=== PATIENT | male | born 1985 | race Hispanic/Latino ===

== ENCOUNTER 2018-03-29 10:53 | Emergency (ER) | payer OTHER ==
[2018-03-29] MEDS ORDERED: ONDANSETRON 4 MG/2 ML VIAL ONE (11:18)
[2018-03-29 11:21] LABS: Absolute Lymphocytes (CBC) 1.3 K/uL (0.7-4.9); Absolute Monocytes 0.4 K/uL (0.1-1.3); Absolute Neutrophil 4.9 K/uL (1.8-8.0); Basophils % 0.6 % (0-1.3); Eosinophils % 1.7 % (0-4.4); Hematocrit 39.6 % (39.6-49.0); Lymphocytes % 19.7 % (15.3-44.8); MCV 90.7 fL (80-100); MPV 8.2 fL (7.6-11.3); Monocytes % 6.5 % (3.3-12.3); RBC Red Blood Cell Count 4.37 M/uL (4.33-5.43)
[2018-03-29 11:29] LABS: Potassium 3.9 mmol/L (3.5-5.1)
--- NOTE | 2018-03-29 12:36 | EDPHYS ---
Physician Documentation [facility] Name: Isak Doyle Age: 33 yrs Sex: Male : 1985 Arrival Date: 03/29/2018 Time: 10:54 Bed 5 Private MD: Unknown, Unknown ED Physician Macho Blevins HPI: 03/29 12:00 This 33 yrs old Male presents to ER via EMS with complaints of Heat Exposure. pm1 12:00 The patient presents to the emergency department with nausea, vomiting. Onset: The pm1 symptoms/episode began/occurred just prior to arrival. Possible causes: Heat exposure. The symptoms are aggravated by nothing. The symptoms are alleviated by zofran by EMS in route. Associated signs and symptoms: Pertinent positives: Headache, Pertinent negatives: abdominal pain, dysuria, fever. Severity of symptoms: in the emergency department the symptoms have improved. The patient has not experienced similar symptoms in the past. The patient has not recently seen a physician. Patient was working outside in the heat since 0800 this AM. Patient was trying to keep up with drinking fluids but got to a point where he was nauseated and was unable to drink water. Has a headache that was addressed by EMS with Tylenol. No chest pain, dizziness or shortness of breath. Historical: - Allergies: 11:03 Sulfa (Sulfonamide Antibiotics); sv - Home Meds: 11:03 None [Active]; sv - PMHx: 11:03 None; sv - PSHx: 11:03 None; sv - Immunization history:: Adult Immunizations up to date. - Social history:: Smoking status: Patient/guardian denies using tobacco. - Ebola Screening: : No symptoms or risks identified at this time. ROS: 12:00 Constitutional: Negative for fever, chills, and weight loss, Eyes: Negative for injury, pm1 pain, redness, and discharge, ENT: Negative for injury, pain, and discharge, Neck: Negative for injury, pain, and swelling, Cardiovascular: Negative for chest pain, palpitations, and edema, Respiratory: Negative for shortness of breath, cough, wheezing, and pleuritic chest pain, Abdomen/GI: Negative for abdominal pain, nausea, vomiting, diarrhea, and constipation, Back: Negative for injury and pain, MS/Extremity: Negative for injury and deformity, Skin: Negative for injury, rash, and discoloration. 12:00 Neuro: Positive for headache, Negative for dizziness, seizure activity, syncope, tingling, visual changes, weakness. Exam: 12:00 Constitutional: This is a well developed, well nourished patient who is awake, alert, pm1 and in no acute distress. Head/Face: Normocephalic, atraumatic. Eyes: Pupils equal round and reactive to light, extra-ocular motions intact. Lids and lashes normal. Conjunctiva and sclera are non-icteric and not injected. Cornea within normal limits. Periorbital areas with no swelling, redness, or edema. ENT: Nares patent. No nasal discharge, no septal abnormalities noted. Tympanic membranes are normal and external auditory canals are clear. Oropharynx with no redness, swelling, or masses, exudates, or evidence of obstruction, uvula midline. Mucous membranes moist. Neck: Trachea midline, no thyromegaly or masses palpated, and no cervical lymphadenopathy. Supple, full range of motion without nuchal rigidity, or vertebral point tenderness. No Meningismus. Chest/axilla: Normal chest wall appearance and motion. Nontender with no deformity. No lesions are appreciated. Cardiovascular: Regular rate and rhythm with a normal S1 and S2. No gallops, murmurs, or rubs. Normal PMI, no JVD. No pulse deficits. Respiratory: Lungs have equal breath sounds bilaterally, clear to auscultation and percussion. No rales, rhonchi or wheezes noted. No increased work of breathing, no retractions or nasal flaring. Abdomen/GI: Soft, non-tender, with normal bowel sounds. No distension or tympany. No guarding or rebound. No evidence of tenderness throughout. Back: No spinal tenderness. No costovertebral tenderness. Full range of motion. Skin: Warm, dry with normal turgor. Normal color with no rashes, no lesions, and no evidence of cellulitis. MS/ Extremity: Pulses equal, no cyanosis. Neurovascular intact. Full, normal range of motion. 12:00 Neuro: Orientation: is normal, Mentation: is normal, Cranial nerves: CN II- XII are normal as tested, Cerebellar function: normal finger to nose testing, Motor: is normal, moves all fours, Sensation: is normal, no obvious gross deficits. Vital Signs: 11:03 BP 128 / 76 RA Supine (auto/lg); Pulse 78; Resp 18; Temp 98.5; Pulse Ox 97% ; Weight sv 99.79 kg; Height 5 ft. 9 in. (175.26 cm); Pain 7/10; 11:04 BP 130 / 83 RA Sitting (auto/lg); Pulse 75; sv 11:06 BP 137 / 80 RA Standing (auto/lg); Pulse 80; sv 13:07 BP 118 / 64; Pulse 84; Resp 16 S; Pulse Ox 98% on R/A; Pain 0/10; iw 11:03 Body Mass Index 32.49 (99.79 kg, 175.26 cm) sv MDM: 10:55 Patient medically screened. [facility] 12:06 Data reviewed: vital signs. Data interpreted: Pulse oximetry: on room air is 97 %. pm1 Interpretation: normal. Counseling: I had a detailed discussion with the patient and/or guardian regarding: the historical points, exam findings, and any diagnostic results supporting the discharge/admit diagnosis, lab results, the need for outpatient follow up, to return to the emergency department if symptoms worsen or persist or if there are any questions or concerns that arise at home. 12:35 ED course: Patient offered additional IV fluids. Patient refused because he feels pm1 better now and wants to go home and eat. 03/29 10:55 Order name: CBC with Diff; Complete Time: 11:35 03/29 10:55 Order name: Basic Metabolic Panel; Complete Time: 11:35 [facility] 03/29 10:55 Order name: CPK; Complete Time: 11:35 [facility] 03/29 10:55 Order name: Urine Dipstick-Ancillary (obtain specimen); Complete Time: 13:08 03/29 10:56 Order name: IV; Complete Time: 10:59 03/29 10:58 Order name: Orthostatic Blood Pressure; Complete Time: 11:15 pm1 Administered Medications: 10:59 Drug: NS 0.9% 1000 ml Route: IV; Rate: 1000 ml; Site: left antecubital; sv 12:00 Follow up: IV Status: Completed infusion iw 11:15 Drug: Zofran 4 mg Route: IVP; Site: left antecubital; sv 12:00 Follow up: Response: No adverse reaction iw Disposition: 15:23 Co-signature as Attending Physician, Macho Blevins MD. rn Disposition: 03/29/18 12:36 Discharged to Home. Impression: Dehydration, Exposure to excessive natural heat. - Condition is Stable. - Discharge Instructions: Dehydration, Adult, Rehydration, Adult. - Prescriptions for Zofran 4 mg Oral Tablet - take 1 tablet by ORAL route every 8 hours As needed; 20 tablet. - Work release form, Medication Reconciliation Form, Thank You Letter, Antibiotic Education, Prescription Opioid Use form. - Follow up: Emergency Department; When: As needed; Reason: Worsening of condition. Follow up: Private Physician; When: 2 - 3 days; Reason: Recheck today's complaints, Continuance of care, Re-evaluation by your physician. - Problem is new. - Symptoms have improved. Signatures: Dispatcher [employer] EDMerly Bell RN Stefanie Meyers RN RN iw Nieto, MD MD corwin Pritchard Josh, PARMJIT PARNELL jr8 Juan Chinchilla, GALLERY OR MUSEUM GUIDE GALLERY OR MUSEUM GUIDE pm1 Corrections: (The following items were deleted from the chart) 13:09 12:36 03/29/2018 12:36 Discharged to Home. Impression: Dehydration; Exposure to iw excessive natural heat. Condition is Stable. Discharge Instructions: Dehydration, Adult, Rehydration, Adult. Prescriptions for Zofran 4 mg Oral Tablet - take 1 tablet by ORAL route every 8 hours As needed; 20 tablet. and Forms are Medication Reconciliation Form, Thank You Letter, Antibiotic Education, Prescription Opioid Use. Follow up: Emergency Department; When: As needed; Reason: Worsening of condition. Follow up: Private Physician; When: 2 - 3 days; Reason: Recheck today's complaints, Continuance of care, Re-evaluation by your physician. Problem is new. Symptoms have improved. pm1
--- NOTE | 2018-03-29 12:36 | ER ---
Nurse's Notes [facility] Name: Isak Doyle Age: 33 yrs Sex: Male : 1985 Arrival Date: 03/29/2018 Time: 10:54 Bed 5 Private MD: Unknown, Unknown Diagnosis: Dehydration;Exposure to excessive natural heat Presentation: 03/29 10:50 Presenting complaint: EMS states: has been working outside since 0800 and began having sv n/v/headache. Zofran 4 mg IVP and Tylenol 1 gram PO given. BP 147/83 HR-68 97% RA Temp-98.2 BS-129. Transition of care: patient was not received from another setting of care. Onset of symptoms was March 29, 2018. Risk Assessment: Do you want to hurt yourself or someone else? Patient reports no desire to harm self or others. Initial Sepsis Screen: Does the patient meet any 2 criteria? No. Patient's initial sepsis screen is negative. Does the patient have a suspected source of infection? No. Patient's initial sepsis screen is negative. Care prior to arrival: Medication(s) given: Normal saline infusion, IV initiated. 20 GA, in the left antecubital area, Glucose check: 129. 10:50 Method Of Arrival: EMS: [facility] sv 10:50 Acuity: ANCELMO 3 sv Triage Assessment: 10:50 General: Appears in no apparent distress. comfortable, well groomed, well developed, sv Behavior is calm, cooperative, appropriate for age. Pain: Complains of pain in head Pain currently is 7 out of 10 on a pain scale. Quality of pain is described as throbbing, Is continuous. EENT: No signs and/or symptoms were reported regarding the EENT system. Neuro: Level of Consciousness is awake, alert, obeys commands, Oriented to person, place, time, situation, Moves all extremities. Full function Gait is steady, Speech is normal. Cardiovascular: Patient's skin is warm and dry. Respiratory: Respiratory effort is even, unlabored, Respiratory pattern is regular, symmetrical. Derm: Skin is normal, Skin temperature is warm. Historical: - Allergies: 11:03 Sulfa (Sulfonamide Antibiotics); sv - Home Meds: 11:03 None [Active]; sv - PMHx: 11:03 None; sv - PSHx: 11:03 None; sv - Immunization history:: Adult Immunizations up to date. - Social history:: Smoking status: Patient/guardian denies using tobacco. - Ebola Screening: : No symptoms or risks identified at this time. Screenin:03 Abuse screen: Denies threats or abuse. Denies injuries from another. Nutritional sv screening: No deficits noted. Tuberculosis screening: No symptoms or risk factors identified. Fall Risk None identified. Assessment: 11:18 Reassessment: No changes from previously documented assessment. See triage assessment. sv 13:07 Reassessment: Patient appears in no apparent distress at this time. Patient and/or iw family updated on plan of care and expected duration. Pain level reassessed. Patient is alert, oriented x 3, equal unlabored respirations, skin warm/dry/pink. Patient states feeling better. Patient states symptoms have improved. Vital Signs: 11:03 BP 128 / 76 RA Supine (auto/lg); Pulse 78; Resp 18; Temp 98.5; Pulse Ox 97% ; Weight sv 99.79 kg; Height 5 ft. 9 in. (175.26 cm); Pain 7/10; 11:04 BP 130 / 83 RA Sitting (auto/lg); Pulse 75; sv 11:06 BP 137 / 80 RA Standing (auto/lg); Pulse 80; sv 13:07 BP 118 / 64; Pulse 84; Resp 16 S; Pulse Ox 98% on R/A; Pain 0/10; iw 11:03 Body Mass Index 32.49 (99.79 kg, 175.26 cm) sv ED Course: 10:50 Initial lab(s) drawn, by me, sent to lab. Maintain EMS IV. Dressing intact. Good blood sv return noted. Site clean \T\ dry. Gauge \T\ site: 20G L AC. 10:54 Patient arrived in ED. mr 10:54 Unknown, Unknown is Private Physician. mr 10:55 Lee Maradiaga PA is PHCP. jr8 10:55 Macho Blevins MD is Attending Physician. jr8 10:57 PHCP role handed off by Lee Maradiaga PA pm1 10:57 Juan Chinchilla NP is PHCP. pm1 10:59 Merly Olivas, LUIS is Primary Nurse. sv 11:02 Triage completed. sv 11:03 Arm band placed on right wrist. sv 11:03 Patient has correct armband on for positive identification. Bed in low position. Call sv light in reach. Side rails up X2. Pulse ox on. NIBP on. Door closed. Head of bed elevated. 13:07 No provider procedures requiring assistance completed. IV discontinued, intact, iw bleeding controlled, No redness/swelling at site. Pressure dressing applied. Administered Medications: 10:59 Drug: NS 0.9% 1000 ml Route: IV; Rate: 1000 ml; Site: left antecubital; sv 12:00 Follow up: IV Status: Completed infusion iw 11:15 Drug: Zofran 4 mg Route: IVP; Site: left antecubital; sv 12:00 Follow up: Response: No adverse reaction iw Outcome: 12:36 Discharge ordered by MD. pm1 13:07 Discharged to home ambulatory, with family. iw 13:07 Condition: good 13:07 Discharge instructions given to patient, family, Instructed on discharge instructions, follow up and referral plans. medication usage, Demonstrated understanding of instructions, follow-up care, medications, Prescriptions given X 1. 13:09 Patient left the ED. iw Signatures: Merly Olivas, RN RN Tabby Woodson Irene, RN RN iw Lee Maradiaga PA PA jr8 Juan Chinchilla, FOIL STAMP OPERATOR FOIL STAMP OPERATOR pm1 Corrections: (The following items were deleted from the chart) 11:16 11:03 BP 128 / 76; Pulse 78bpm; Resp 18bpm; Pulse Ox 97%; Temp 98.5F; 99.79 kg; Height sv 5 ft. 9 in.; BMI: 32.4; Pain 7/10; sv
== END 2018-03-29 13:09 | disposition home or self-care (01) ==
LOC: ER 10:53
DX: E86.0 Dehydration (principal); X30.XXXA Exposure to excessive natural heat, initial encounter; Y93.89 Activity, other specified; Y92.89 Other specified places as the place of occurrence of the external cause; Y99.8 Other external cause status; Z88.2 Allergy status to sulfonamides
CPT/HCPCS: 36415; 80048; 82550; 85025; 96361; 96374; 99284; J2405